=== PATIENT | male | born 1960 | race American Indian/Alaskan Native ===

== ENCOUNTER 2019-06-13 07:13 | Outpatient (CLI) | payer OTHER ==
--- NOTE | 2019-06-13 09:02 | Ultrasound Report ---
ULTRASOUND TESTICULAR DOPPLER COMPLETE HISTORY: N50.82 SCROTAL PAIN. Right-sided scrotal pain for 3 months. COMPARISON: None. TECHNIQUE: Grayscale, color and spectral Doppler images were obtained of the scrotum. FINDINGS: RIGHT: Right testicle: Microlithiasis is identified. No cyst or mass. Right testicular size: 4.1 x 1.9 x 3.3 cm. Right epididymis: No significant abnormality. LEFT: Left testicle: Microlithiasis is identified. No cyst or mass. Left testicular size: 4.0 x 2.1 x 3.3 cm. Left epididymis: Small left epididymal head cyst versus spermatocele measures 5 mm. Additional findings: Spectral Doppler waveforms demonstrate arterial flow bilaterally. No significant hydrocele or varicocele. IMPRESSION: Bilateral microlithiasis. No evidence for testicular mass, inflammation or torsion. 5 mm left epididymal head cyst. Signer Name: Yasmany Bowling Jr, MD Signed: 06/13/2019 8:58 AM Workstation Name: [id number]
== END 2019-06-13 07:14 | disposition home or self-care (01) ==
LOC: US 07:13
PROVIDERS: ATTEND Urology
DX: N50.89 Other specified disorders of the male genital organs (principal); N50.82 Scrotal pain
CPT/HCPCS: 93975